=== PATIENT | male | born 1955 | race African-American/Black ===

== ENCOUNTER 2016-09-11 19:22 | Emergency (ER) | payer OTHER ==
--- NOTE | 2016-09-11 19:42 | ER Document Report ---
ED General - General Stated Complaint: SHORTNESS OF BREATH Time Seen by Provider: 09/11/16 19:31 Notes: Patient is a 61-year-old male with past medical history of hypertension and remote history of prostate cancer who presents with shortness of breath. Patient states he has had progressively worsening abdominal swelling for the past 4 months which was just evaluated by a CT scan without contrast of his abdomen and pelvis earlier today. States his doctor told him he had a large right-sided tumor but did not make any further referrals from there at this point. Patient states that he was sitting in a chair today and progressively felt worse and worse that he could not breathe. Nothing improves or worsens his symptoms. He reports that he has felt this way for at least 2-3 weeks but that it was somewhat worse today which is what prompted him to come to the emergency department. He has not had any vomiting or diarrhea. No chest pain. Does describe diffuse abdominal cramping, constant pain. Nothing improves or worsens that pain he states is unchanged at this time. - Related Data Allergies/Adverse Reactions: latex Allergy (Verified 09/11/16 19:47) Home Medications: Current Home Medications Amlodipine Besylate [Norvasc 5 mg Tablet] 5 mg PO DAILY 09/11/16 [History] Timolol [Betimol] 1 drop OU Q12 09/11/16 [History] Past Medical History - General Information source: Patient - Social History Smoking Status: Former Smoker Frequency of alcohol use: None Drug Abuse: None Lives with: Family Family History: Reviewed & Not Pertinent Review of Systems - Review of Systems Notes: Constitutional: Negative for fever. HENT: Negative for sore throat. Eyes: Negative for visual changes. Cardiovascular: Negative for chest pain. Respiratory: positive for shortness of breath. Gastrointestinal: Positive for abdominal pain Genitourinary: Negative for dysuria. Musculoskeletal: Negative for back pain. Skin: Negative for rash. Neurological: Negative for headaches, weakness or numbness. 10 point ROS negative except as marked above and in HPI. Physical Exam - Vital signs Vitals: Temp Pulse Ox 97.1 F 85 L 09/11/16 19:45 09/11/16 19:45 Interpretation: Tachycardic, Hypoxic, Tachypneic Notes: PHYSICAL EXAMINATION: GENERAL: Appears uncomfortable, in mild distress HEAD: Atraumatic, normocephalic. EYES: Pupils equal round and reactive to light, extraocular movements intact, sclera anicteric, conjunctiva are normal. ENT: nares patent, oropharynx clear without exudates. Moderately dry mucous membranes. NECK: Normal range of motion, supple without lymphadenopathy LUNGS: Breath sounds clear to auscultation bilaterally and equal. Hypoventilation. No wheezes rales or rhonchi. HEART: Regular tachycardia without murmurs ABDOMEN: Distended, firm abdomen with a large palpable right-sided mass EXTREMITIES: Normal range of motion, trace edema in the bilateral lower extremities. No cyanosis. NEUROLOGICAL: No focal neurological deficits. Moves all extremities spontaneously and on command. PSYCH: Normal mood, normal affect. SKIN: Warm, Dry, normal turgor, no rashes or lesions noted. Course - Re-evaluation Re-evalutation: 09/11/16 19:41 Patient presents with severe abdominal swelling and palpable mass originating apparently on the right side of the abdomen which appears to be so large at this point that it is compressing the patient's diaphragm preventing appropriate respiration. Patient is satting 86% on room air and does require 3 and half liters by nasal cannula to maintain saturations of 94%. Breath sounds are clear bilaterally. Patient does not have any focal abdominal pain but as mentioned earlier there is an easily identifiable large mass in the abdomen. He states he was told earlier today that he has a tumor in his abdomen by his primary care doctor. The size of this mass preventing patient from having appropriate ventilation does make this more of an emergent issue that is not going to be able to be addressed as an outpatient and he is in require transfer to a location with surgical oncology. Will obtain a CT of the abdomen pelvis and basic labs in plan for transfer. 09/11/162019 Patient remains hemodynamically stable on 3.5 L of nasal cannula, will continue to monitor closely as patient remains critically ill 2099-laboratories are positive for an moderately elevated troponin, moderately elevated lactate, slight anemia. Pending CTA of the chest and CT abdomen 2237-I received a call from the radiologist that the patient has bilateral pulmonary emboli in addition to an extremely large abdominal tumor. Awaiting full report. Patient has been given a dose of subcutaneous Lovenox. He will be transferred. 09/12/16 01:15 I continue to await [facility] returning my phone call. Pedrito stated the had a 3-4 day waiting period for a bed. Abhi likewise states 2 days minimum for a bed. 09/12/16 01:25 I have spoken with at [facility] who has accepted the patient in transfer at this time. - Vital Signs Vital signs: Temp Pulse Resp BP Pulse Ox 97.1 F 28 H 120/93 H 98 09/11/16 19:45 09/12/16 00:45 09/12/16 00:03 09/12/16 00:45 - Laboratory Result Diagrams: 09/11/16 19:58 09/11/16 19:58 Laboratory results interpreted by me: 09/11/16 09/11/16 09/11/16 19:58 19:58 19:58 WBC 10.9 H RBC 3.94 L Hgb 11.8 L Hct 36.0 L RDW 14.9 H Seg Neutrophils % 78.4 H Lymphocytes % 9.9 L Absolute Neutrophils 8.6 H Carbon Dioxide 18 L Lactic Acid 2.4 H Direct Bilirubin 0.8 H ALT 15 L Critical Care Note - Critical Care Note Total time excluding time spent on procedures (mins): 40 Comments: Critical care time spent obtaining history from patient or surrogate, discussions with consultants, development of treatment plan with patient or surrogate, evaluation of patient's response to treatment, examination of patient , ordering and performing treatments and interventions, ordering and review of laboratory studies, re-evaluation of patient's condition, ordering and review of radiographic studies and review of old charts Discharge - Discharge Clinical Impression: Bilateral pulmonary embolism, Intraabdominal mass Condition: Fair Disposition: [facility]
[2016-09-11 20:15] LABS: ABSOLUTE BASOPHILS # (AUTO) 0.1 10^3/uL (0.0-0.2); ABSOLUTE EOSINOPHILS # (AUTO) 0.3 10^3/uL (0.0-0.6); ABSOLUTE LYMPHOCYTES (AUTO) 1.1 10^3/uL (0.5-4.7); ABSOLUTE MONOCYTES (AUTO) 0.9 10^3/uL (0.1-1.4); ABSOLUTE NEUT (AUTO) 8.6 10^3/uL (1.7-8.2); BASOPHILS % (AUTO) 1.1 % (0-2); EOSINOPHILS % (AUTO) 2.5 % (0-6); HEMOGLOBIN 11.8 g/dL (13.5-17.0); HGB HCT DIFFERENCE -0.6; LYMPHOCYTES % (AUTO) 9.9 % (13-45); MEAN CORPUSCULAR HGB CONC 32.8 g/dL (32.0-36.0); MEAN CORPUSCULAR VOLUME 91 fl (80-97); MONOCYTES % (AUTO) 8.1 % (3-13); RED BLOOD COUNT 3.94 10^6/uL (4.35-5.55); RED CELL DISTRIBUTION WIDTH 14.9 % (11.5-14.0); SEGMENTED NEUTROPHILS % (AUTO) 78.4 % (42-78); WHITE BLOOD COUNT 10.9 10^3/uL (4.0-10.5)
[2016-09-11 20:33] LABS: ALANINE AMINOTRANSFERASE 15 U/L (21-72); ALBUMIN 3.7 g/dL (3.5-5.0); ALKALINE PHOSPHATASE 68 U/L (38-126); ANION GAP 14 (5-19); ASPARTATE AMINO TRANSFERASE 29 U/L (17-59); BILIRUBIN,DIRECT 0.8 mg/dL (0.0-0.4); BILIRUBIN,TOTAL 1.2 mg/dL (0.2-1.3); BLOOD UREA NITROGEN 15 mg/dL (7-20); CALCIUM 8.5 mg/dL (8.4-10.2); CARBON DIOXIDE 18 mmol/L (22-30); CHLORIDE 107 mmol/L (98-107); CREATININE RESULT 1.01 mg/dL (0.52-1.25); GLUCOSE 108 mg/dL (75-110); LIPASE 23.5 U/L (23-300); TOTAL PROTEIN 7.5 g/dL (6.3-8.2)
--- NOTE | 2016-09-11 22:05 | RADIOLOGY REPORT (SQ) ---
EXAM DESCRIPTION: CHEST SINGLE VIEW COMPLETED DATE/TIME: 09/11/2016 9:11 pm REASON FOR STUDY: sob COMPARISON: None. EXAM PARAMETERS: NUMBER OF VIEWS: One view. TECHNIQUE: Single frontal radiographic view of the chest acquired. RADIATION DOSE: NA LIMITATIONS: None. FINDINGS: LUNGS AND PLEURA: No opacities, masses or pneumothorax. No pleural effusion. MEDIASTINUM AND HILAR STRUCTURES: No masses. Contour normal. HEART AND VASCULAR STRUCTURES: Heart normal in size. Normal vasculature. BONES: No acute findings. HARDWARE: None in the chest. OTHER: No other significant finding. IMPRESSION: NO ACUTE RADIOGRAPHIC FINDING IN THE CHEST. TECHNICAL DOCUMENTATION: JOB ID: [id number]
--- NOTE | 2016-09-11 22:41 | RADIOLOGY REPORT (SQ) ---
EXAM DESCRIPTION: CTA CHEST COMPLETED DATE/TIME: 09/11/2016 9:41 pm REASON FOR STUDY: eval pe COMPARISON: None. TECHNIQUE: CT scan of the chest performed using helical scanning technique with dynamic intravenous contrast injection. Images reviewed with lung, soft tissue and bone windows. Reconstructed coronal and sagittal MPR images reviewed. Additional 3 dimensional post-processing performed to develop Maximal Intensity Projection images (SC P). All images stored on PACS. All CT scanners at this facility use dose modulation, iterative reconstruction, and/or weight based d osing when appropriate to reduce radiation dose to as low as reasonably achievable (ALARA). [facility]: Dose Right [facility]: CareDose [facility]: Dose Right [facility]: Teradose 4D [facility]: [employer] CONTRAST TYPE AND DOSE: 68 Isovue 370 RENAL FUNCTION: Creatinine 1.01 RADIATION DOSE: . LIMITATIONS: None. FINDINGS: LUNGS AND PLEURA: No masses, infiltrates, pneumothorax. No pleural effusions, calcificati ons. AORTA AND GREAT VESSELS: No aneurysm or dissection. HEART: No pericardial effusion. PULMONARY ARTERIES: There is extensive bilateral central pulmonary embolic disease. HILAR AND MEDIASTINAL STRUCTURES: No identified masses or abnormal nodes. HARDWARE: None in the chest. UPPER ABDOMEN: See results under abdominal CT scan THYROID AND OTHER SOFT TISSUES: No masses. No adenopathy. BONES: No acute or significant finding. 3D MIPS: Confirm above findings. OTHER: No other significant finding. IMPRESSION: Extensive bilateral central pulmonary embolic disease. No acute consolidations or pleur al effusions. Other findings as noted above COMMENT: Pertinent findings on the imaging study reported as a CRITICAL RESULT to REDDY vilchis t22:28 on 09/11/2016. Category of Critical Result: Pertinent findings on the imaging study reported as a CRITICAL RESULT to REDDY THOMAS MD at22:28 on . Category of Critical Result: Bilateral central pulmonary embolic disease. TECHNICAL DOCUMENTATION: JOB ID: [id number] Quality ID # [id number]: Final reports with documentation of one or more dose reduction techniques (e.g., Au tomated exposure control, adjustment of the mA and/or kV according to patient size, use of iterative reconstruction technique) 2010 [employer]- All Rights Reserved
[2016-09-11] MEDS ORDERED: ENOXAPARIN SODIUM INJ 100 MG/1 ML DISP.SYRIN SUBCUT SCH (22:45)
--- NOTE | 2016-09-11 22:47 | RADIOLOGY REPORT (SQ) ---
EXAM DESCRIPTION: CT ABD/PELVIS WITH IV ONLY COMPLETED DATE/TIME: 09/11/2016 9:41 pm REASON FOR STUDY: abdominal mass, distention COMPARISON: None. TECHNIQUE: CT scan of the abdomen and pelvis performed using helical scanning technique with dynamic intravenous contrast injection. No oral contrast. Images reviewed with lung, soft tissue, and bone windows. Reconstructed coronal and sagittal MPR images reviewed. Delayed images for evaluation of the urinary system also acquired. All images stored on PACS. All CT scanners at this facility use dose modulation, iterative reconstruction, and/or weight based d osing when appropriate to reduce radiation dose to as low as reasonably achievable (ALARA). [facility]: Dose Right [facility]: CareDose [facility]: Dose Right [facility]: Teradose 4D [facility]: NPTV CONTRAST TYPE AND DOSE: contrast/concentration: Isovue 370.00 mg/ml; Total Contrast Delivered: 67.0 ml; Total Saline Delivered: 40.0 ml RENAL FUNCTION: Creatinine 1.01 RADIATION DOSE: Up-to-date CT equipment and radiation dose reduction techniques were employed. CTDIv ol: 28.8 - 32.7 mGy. DLP: 3772 mGy-cm.. LIMITATIONS: None. FINDINGS: LOWER CHEST: See results under chest CT scan LIVER: Normal size. No masses. No dilated ducts. SPLEEN: Normal size. No focal lesions. PANCREAS: No masses. No significant calcifications. No adjacent inflammation or peripancreatic fluid collections. Pancreatic duct not dilated. GALLBLADDER: No identified stones by CT criteria. No inflammatory changes to suggest cholecystitis. ADRENAL GLANDS: No significant masses or asymmetry. RIGHT KIDNEY AND URETER: No solid masses. No significant calcifications. No hydronephrosis or hyd roureter. LEFT KIDNEY AND URETER: No solid masses. No significant calcifications. No hydronephrosis or hydr oureter. AORTA AND VESSELS: No aneurysm. No dissection. Renal arteries, SMA, celiac without stenosis. RETROPERITONEUM: No retroperitoneal adenopathy, hemorrhage or masses. BOWEL AND PERITONEAL CAVITY: A large complex predominately cystic mass is identified extending from t he upper abdomen into the lower pelvis predominately centrally and to the left of midline measuring 1 8.6 x 27.4 by 37 cm in diameters. There appear to be loculated components as well as multiple mural nodules. There is a densely calcified component in the left lower quadrant. 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 APPENDIX: Not identified PELVIS: There is a large pelvic component of the mass. ABDOMINAL WALL: No masses. No hernias. BONES: No significant or acute findings. OTHER: No other significant finding. IMPRESSION: A large complex predominately cystic mass is identified extending from the upper abdomen into the lower pelvis predominately centrally and to the left of midline as noted above. There are loculated components as well as multiple mural nodules. There is a densely calcified component in th e left lower quadrant. 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 Clinical correl ation is recommended. Other findings as noted above TECHNICAL DOCUMENTATION: JOB ID: [id number] Quality ID # 436: Final reports with documentation of one or more dose reduction techniques (e.g., Au tomated exposure control, adjustment of the mA and/or kV according to patient size, use of iterative reconstruction technique) 2010 [employer]- All Rights Reserved
[2016-09-12] MEDS ORDERED: DIAZEPAM 5 MG TABLET PO ONE (01:14)
[2016-09-12 02:14] VITALS: BP 100/82
[2016-09-12 02:39] LABS: APPEARANCE,URINE SLIGHTLY-CLOUDY; BILIRUBIN,URINE NEGATIVE (NEGATIVE); GLUCOSE, URINE NEGATIVE (NEGATIVE); KETONES,URINE 20 mg/dL (NEGATIVE); LEUKOCYTE ESTERASE,URINE NEGATIVE (NEGATIVE); NITRITE,URINE NEGATIVE (NEGATIVE); PROTEIN,URINE 30 mg/dL (NEGATIVE); URINE SPECIFIC GRAVITY 1.057
== END 2016-09-12 02:27 | disposition short-term general hospital (02) ==
LOC: ER 19:22
DX: I26.99 Other pulmonary embolism without acute cor pulmonale (principal); R19.00 Intra-abdominal and pelvic swelling, mass and lump, unspecified site; R06.02 Shortness of breath; I10 Essential (primary) hypertension; Z85.46 Personal history of malignant neoplasm of prostate; Z79.899 Other long term (current) drug therapy; Z87.891 Personal history of nicotine dependence
CPT/HCPCS: 36415; 71010; 71275; 74177; 80053; 81001; 83605; 83690; 84484; 85025; 99291

== ENCOUNTER 2017-01-17 08:06 | Emergency (ER) | payer OTHER ==
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
[2017-01-17 11:44] VITALS: BP 117/67
== END 2017-01-17 11:44 | disposition home or self-care (01) ==
LOC: ER 08:06
DX: T81.89XA Other complications of procedures, not elsewhere classified, initial encounter (principal); Z87.891 Personal history of nicotine dependence
CPT/HCPCS: 99282

== ENCOUNTER 2017-10-27 11:02 | Emergency (ER) | payer OTHER ==
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
[2017-10-27 11:35] LABS: ABSOLUTE EOSINOPHILS # (AUTO) 0.2 10^3/uL (0.0-0.6); ABSOLUTE LYMPHOCYTES (AUTO) 0.5 10^3/uL (0.5-4.7); ABSOLUTE MONOCYTES (AUTO) 0.8 10^3/uL (0.1-1.4); ABSOLUTE NEUT (AUTO) 6.1 10^3/uL (1.7-8.2); BASOPHILS % (AUTO) 0.6 % (0-2); EOSINOPHILS % (AUTO) 2.7 % (0-6); HEMATOCRIT 33.6 % (37.9-51.0); HEMOGLOBIN 11.4 g/dL (13.5-17.0); LYMPHOCYTES % (AUTO) 6.7 % (13-45); MEAN CORPUSCULAR HEMOGLOBIN 31.8 pg (27.0-33.4); MEAN CORPUSCULAR VOLUME 94 fl (80-97); MONOCYTES % (AUTO) 10.2 % (3-13); PLATELET COUNT 264 10^3/uL (150-450); RED CELL DISTRIBUTION WIDTH 18.9 % (11.5-14.0); SEGMENTED NEUTROPHILS % (AUTO) 79.8 % (42-78); TOTAL CELLS COUNTED % (AUTO) 100 %; WHITE BLOOD COUNT 7.6 10^3/uL (4.0-10.5)
[2017-10-27 12:04] LABS: ALANINE AMINOTRANSFERASE 76 U/L (21-72); ALBUMIN 3.2 g/dL (3.5-5.0); ALKALINE PHOSPHATASE 434 U/L (38-126); ANION GAP 10 (5-19); ASPARTATE AMINO TRANSFERASE 140 U/L (17-59); BILIRUBIN,DIRECT 8.5 mg/dL (0.0-0.4); BILIRUBIN,TOTAL 9.7 mg/dL (0.2-1.3); BLOOD UREA NITROGEN 22 mg/dL (7-20); CALCIUM 8.8 mg/dL (8.4-10.2); CARBON DIOXIDE 21 mmol/L (22-30); CHLORIDE 103 mmol/L (98-107); CREATINE KINASE 29 U/L (55-170); GLUCOSE 86 mg/dL (75-110); POTASSIUM 5.6 mmol/L (3.6-5.0); SODIUM 134.4 mmol/L (137-145); TOTAL PROTEIN 7.8 g/dL (6.3-8.2)
[2017-10-27 12:16] LABS: NT PRO BNP 365 pg/mL (5-900)
[2017-10-27 12:16] LABS: APPEARANCE,URINE SLIGHTLY-CLOUDY; BILIRUBIN,URINE MODERATE (NEGATIVE); COLOR,URINE AMBER; GLUCOSE, URINE NEGATIVE (NEGATIVE); KETONES,URINE NEGATIVE (NEGATIVE); LEUKOCYTE ESTERASE,URINE NEGATIVE (NEGATIVE); NITRITE,URINE NEGATIVE (NEGATIVE); PROTEIN,URINE 100 mg/dL (NEGATIVE); URINE SPECIFIC GRAVITY 1.023
--- NOTE | 2017-10-27 12:24 | RADIOLOGY REPORT (SQ) ---
EXAM DESCRIPTION: CHEST SINGLE VIEW COMPLETED DATE/TIME: 10/27/2017 11:48 am REASON FOR STUDY: SOB COMPARISON: None. EXAM PARAMETERS: NUMBER OF VIEWS: One view. TECHNIQUE: Single frontal radiographic view of the chest acquired. RADIATION DOSE: NA LIMITATIONS: None. FINDINGS: LUNGS AND PLEURA: Pulmonary nodules in the left lung near the hilum, measuring 2 and 3 cm. No focal infiltrates. No pleural effusion. No pneumothorax. MEDIASTINUM AND HILAR STRUCTURES: No masses. Contour normal. HEART AND VASCULAR STRUCTURES: Heart normal in size. Normal vasculature. BONES: No acute findings. HARDWARE: None in the chest. OTHER: No other significant finding. IMPRESSION: PULMONARY NODULES IN THE LEFT LUNG MOST LIKELY DUE TO METASTASES. OTHERWISE NO ACUTE FI NDINGS. TECHNICAL DOCUMENTATION: JOB ID: [id number] [employer]- All Rights Reserved Reading location - IP/workstation name: [email or web address]
[2017-10-27 12:32] LABS: TROPONIN I < 0.012 ng/mL
[2017-10-27 14:06] VITALS: BP 111/84
--- NOTE | 2017-10-27 14:39 | RADIOLOGY REPORT (SQ) ---
EXAM DESCRIPTION: CT LTD RENAL STONE PROTOCOL ON COMPLETED DATE/TIME: 10/27/2017 2:16 pm REASON FOR STUDY: Hematuria COMPARISON: 09/11/2016. TECHNIQUE: CT scan of the abdomen and pelvis performed without intravenous or oral contrast. Images reviewed with lung, soft tissue, and bone windows. Reconstructed coronal and sagittal MPR images revi ewed. All images stored on PACS. All CT scanners at this facility use dose modulation, iterative reconstruction, and/or weight based d osing when appropriate to reduce radiation dose to as low as reasonably achievable (ALARA). [facility]: Dose Right [facility]: CareDose [facility]: Dose Right [facility]: Teradose 4D [facility]: Smart [employer] RADIATION DOSE: CT Rad equipment meets quality standard of care and radiation dose reduction techniq ues were employed. CTDIvol: 8.7 mGy. DLP: 515 mGy-cm.mGy. LIMITATIONS: None. FINDINGS: LOWER CHEST: 1.6 cm mass in the medial left lower lobe. NON-CONTRASTED LIVER, SPLEEN, ADRENALS: Evaluation limited by lack of IV contrast. Marked hepatomega ly. Multiple confluent hepatic masses. Largest area of involvement measures approximately 16 cm. PANCREAS: No masses. No peripancreatic inflammatory changes. GALLBLADDER: No identified stones by CT criteria. No inflammatory changes to suggest cholecystitis. RIGHT KIDNEY AND URETER: No suspicious masses. Assessment limited by lack of IV contrast. No signif icant calcifications. No hydronephrosis or hydroureter. LEFT KIDNEY AND URETER: Surgically absent. AORTA AND RETROPERITONEUM: No aneurysm. No retroperitoneal masses or adenopathy. BOWEL AND PERITONEAL CAVITY: No obvious masses or inflammatory changes. Small amount of free fluid. APPENDIX: Normal. PELVIS, BLADDER, AND ABDOMINAL WALL:No abnormal masses. No free fluid. Bladder normal. BONES: Mild wedge deformity of L1, age indeterminate. No other significant findings. OTHER: No other significant finding. IMPRESSION: 1. MARKED HEPATIC ENLARGEMENT WITH MULTIPLE LARGE CONFLUENT HEPATIC MASSES CONSISTENT WITH EXTENSIVE METASTASES. 2. NODULE IN THE MEDIAL LEFT LOWER LOBE CONSISTENT WITH PULMONARY METASTASIS. 3. SMALL AMOUNT OF ASCITES. 4. MILD WEDGE DEFORMITY OF THE L1 VERTEBRAL BODY, AGE INDETERMINATE. COMMENT: Quality ID # [id number]: Final reports with documentation of one or more dose reduction techniques (e.g., Automated exposure control, adjustment of the mA and/or kV according to patient size, use of iterative reconstruction technique) TECHNICAL DOCUMENTATION: JOB ID: [id number] [employer]- All Rights Reserved Reading location - IP/workstation name: [email or web address]
== END 2017-10-27 16:09 | disposition home or self-care (01) ==
LOC: ER 11:02
DX: C78.7 Secondary malignant neoplasm of liver and intrahepatic bile duct (principal); C78.02 Secondary malignant neoplasm of left lung; R18.8 Other ascites; R06.02 Shortness of breath; R31.0 Gross hematuria; I10 Essential (primary) hypertension; Z91.040 Latex allergy status; Z87.891 Personal history of nicotine dependence; Z86.711 Personal history of pulmonary embolism; Z90.5 Acquired absence of kidney
CPT/HCPCS: 36415; 71045; 76380; 80053; 81001; 82550; 83605; 83880; 84484; 85025; 99284

== ENCOUNTER → 2017-11-07 | Outpatient (CLI) | payer OTHER ==
--- NOTE | 2017-11-07 12:58 | WOMENS IMAGING REPORT ---
EXAM DESCRIPTION: BONE DENSITY HIP/SPINE COMPLETED DATE/TIME: 11/07/2017 9:59 am REASON FOR STUDY: BONE DENSITY TEST/ M81.0 M81.0 AGE-RELATED OSTEOPOROSIS W/O CURRENT PATHOLOGICAL FRAC COMPARISON: None. TECHNIQUE: Dual-Energy X-ray Absorptiometry (DEXA) of the AP Spine and Hip. LIMITATIONS: None. FINDINGS: LUMBAR SPINE: The bone mineral density (BMD) measured from L1-L4 in the AP projection correlates with a T-score of -0.1, which is normal as defined by the World Health Organization. HIP: The bone mineral density (BMD) measured in the left femoral neck at the hip correlates with a T-score of -0.4, which is normal as defined by the World Health Organization. IMPRESSION: 1. LUMBAR SPINE: Normal 2. HIP: Normal COMMENT: The World Health Organization defines low BMD as follows: T-score: Normal: Greater than -1.0 Osteopenia: Between -1.0 and -2.5 Osteoporosis: Less than -2.5 without fractures Established osteoporosis: Less than -2.5 with fractures In general, you may wish to consider: Diagnosis Treatment Follow-up DEXA Normal BMD Prevention 2-3 years Osteopenia Prevention/Therapy 1-2 years Osteoporosis Therapy Yearly TECHNICAL DOCUMENTATION: JOB ID: [id number] [employer]- All Rights Reserved Reading location - IP/workstation name: [email or web address]
== END ==
LOC: WI 09:17
PROVIDERS: ATTEND Internal Medicine
DX: M81.0 Age-related osteoporosis without current pathological fracture (principal)
CPT/HCPCS: 77080

== ENCOUNTER → 2017-11-11 | Outpatient (CLI) | payer OTHER ==
[~2017-11-11] MED LIST: ENOXAPARIN SODIUM INJ 30 MG/0.3 ML DISP.SYRIN SUBCUT SCH; NORMAL SALINE 1000 ML 1,000 ML IV PRN
--- NOTE | 2017-11-12 09:14 | RADIOLOGY REPORT (SQ) ---
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 TECHNIQUE: Blood glucose level was verified. Above dose of FDG was injected intravenously. 2-D seg mented attenuation correction images were obtained from the base of the skull to the midthighs. Nonc ontrast CT images were obtained for attenuation correction and fusion with emission images. CT image s were performed without oral or intravenous contrast and are not sensitive for parenchymal lesions. A series of overlapping emission PET images were obtained. Images reviewed and manipulated at [facility] work station by the radiologist. Images stored on PACS. LIMITATIONS: None. FINDINGS: HEAD AND NECK: No areas of abnormal metabolic activity in the soft tissues of the head and neck. CHEST: There are multiple metabolically active lung nodules from metastatic disease. Index lesions a s follows: Solid Left upper lobe nodule, 1.7 x 1.6 cm axial image 83, SUV of 8. Cystic left upper lobe nodule, 2.5 x 2.1 cm axial image 91, SUV 2.2 Solid left lower lobe nodule, 2 x 1.5 cm axial image 116, SUV 4.5 A subcentimeter left hilar lymph node is present on axial image 97 with SUV 3.4 ABDOMEN AND PELVIS: Diffuse hepatomegaly. Liver is near completely replaced with cystic masses with peripheral rim of increased activity. Metabolic activity ranges up to SUV of 8 PROXIMAL LOWER EXTREMITIES: No areas of abnormal metabolic activity in the soft tissues of the lower extremities. BONES: No abnormal metabolic activity in the visualized skeleton. Specifically, no lumbar spine lesi ons are present ADDITIONAL CT FINDINGS: Post left nephrectomy adrenalectomy partial colectomy. OTHER: Blood pool background activity SUV 1.5. Unable to measure liver background activity. 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
== END ==
LOC: RAD 11-04 17:05
PROVIDERS: ATTEND Internal Medicine
DX: C48.0 Malignant neoplasm of retroperitoneum (principal); C78.7 Secondary malignant neoplasm of liver and intrahepatic bile duct; C78.02 Secondary malignant neoplasm of left lung
CPT/HCPCS: 78815; A9552

== ENCOUNTER 2017-11-14 12:47 | Inpatient (IN) | payer OTHER ==
[2017-11-14] MEDS: NORMAL SALINE 1000 ML 1,000 ML IV PRN (14:16)
[2017-11-14] MEDS ORDERED: MORPHINE SULFATE 10 MG/ML INJ IV PRN (14:56)
[2017-11-14] MEDS ORDERED: ENOXAPARIN SODIUM INJ 30 MG/0.3 ML DISP.SYRIN SUBCUT SCH (15:30)
--- NOTE | 2017-11-14 15:50 | PDOC H&P ---
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 Durand's clinic due to dehydration. Patient apparently went to see Dr. Durand earlier today. He has been having chronic generalized abdominal pain which has worsened in the past 4 weeks. This is also associated with early satiety. He has been having poor oral intake for the past few weeks and was noted to be dehydrated when he was assessed at the oncology clinic. Patient is a direct admit from Dr. Durand's clinic. Discussed case with Dr. Durand over the phone. Patient has been found to have mets to the liver and lungs. Patient and family apparently are not amenable to hospice care. Upon encounter, patient does not appear to be in respiratory distress but is in distress from his abdominal pain. Patient and family expressed they want to be transferred to [facility] to seek a second opinion about treatment options for his cancer. Past Medical History Cardiac Medical History: Reports: Hypertension, Pulmonary Embolism Past Surgical History Past Surgical History: Reports: Other - 20 pound abdominal sarcoma removed on . Social History Smoking Status: Former Smoker Number of Years Smokin Last Time Smoked: June 2017 Family History Family History: Reviewed & Not Pertinent Parental Family History Reviewed: Yes - no premature CAD Children Family History Reviewed: No Sibling(s) Family History Reviewed.: No Medication/Allergy Home Medications: Polyethylene Glycol 3350 [Miralax Powder 17 gm/Packet] 17 gm PO BID 11/14/17 Rivaroxaban [Xarelto] 20 mg PO DAILY 11/14/17 Sulfamethoxazole/Trimethoprim [Sulfamethoxazole-Tmp Ds Tablet] 1 tab PO BID 11/22 Timolol Maleate [Timoptic 0.5% Oph Soln 5 ml] 1 drop OU BID 11/14/17 Allergies/Adverse Reactions: latex Allergy (Verified 01/17/17 08:08) Review of Systems All systems: reviewed and no additional remarkable complaints except as stated - as mentioned in HPI Physical Exam Vital Signs: Intake & Output 11/13/17 11/14/17 11/15/17 06:59 06:59 06:59 Weight 203 lb 0.732 oz General appearance: PRESENT: mild distress, thin Head exam: PRESENT: atraumatic, normocephalic Eye exam: PRESENT: EOMI, PERRLA, scleral icterus Ear exam: PRESENT: normal external ear exam Mouth exam: PRESENT: moist, tongue midline Neck exam: ABSENT: carotid bruit, JVD, lymphadenopathy, thyromegaly Respiratory exam: PRESENT: clear to auscultation michelle, rhonchi. ABSENT: rales, wheezes Cardiovascular exam: PRESENT: RRR. ABSENT: diastolic murmur, rubs, systolic murmur Pulses: PRESENT: normal dorsalis pedis pul GI/Abdominal exam: PRESENT: distended, mass, organolmegaly - distended abdomen,+ hepatomegaly, +direct LUQ and RUQ tenderness, tenderness Rectal exam: PRESENT: deferred Neurological exam: PRESENT: alert, awake, oriented to person, oriented to place , oriented to time, oriented to situation, CN II-XII grossly intact. ABSENT: motor sensory deficit Assessment & Plan - Diagnosis (1) Acute kidney injury Is this a current diagnosis for this admission?: Yes Plan: BUN and Crea are elevated. Likely pre renal from dehydration from poor oral intake. Will give a fluid bolus the continue IV fluids at 120 cc/hr. Recheck BMP tomorrow. (2) History of pulmonary embolism Is this a current diagnosis for this admission?: Yes Plan: Patient is on Xarelto at home. He has TONIA. Will start patient on heparin drip. (3) Leiomyosarcoma Is this a current diagnosis for this admission?: Yes Plan: Patient was first diagnosed with a left quadrant abdominal mass in September 2015. He eventually underwent resection of the mass with left sided nephrectomy and partial colectomy with pre surgery radiation at [facility]. Patient follows up with Dr. Durand. Patient was recently noted to have liver and lung metastases. Patient and family requested to be transferred to [facility] for a second opinion regarding treatment options for cancer care. Explained it is unlikely he will be eligible for interfacility transfer for cancer care. Discussed in length with patient and family. I did call [facility] and spoke with equipment validation engineer oncologist, Dr. Lloyd and discussed case in length. Patient will have to be treated for his acute issues first (TONIA, dehydration). When he is more stable , he will be evaluated at [facility] Oncology clinic. Dr. Lloyd will also forward case to Sarcoma specialists in [facility] if there are viable options or clinical trials for patient. (4) Hyperbilirubinemia Is this a current diagnosis for this admission?: Yes Plan: Patient has had chronic hyperbilirubinemia deemed from hepatic metastases. (5) Transaminitis Is this a current diagnosis for this admission?: Yes Plan: Patient has chronic elevated liver enzymes deemed from hepatic metastases. (6) Hyperkalemia Is this a current diagnosis for this admission?: Yes Plan: Potassium is 5.2. This is likely related to TONIA. No EKG changes. Continue fluids for TONIA. Will repeat Potassium in 6 hrs. (7) Full code status Is this a current diagnosis for this admission?: Yes Plan: Discussed code status and plan of care with patient and family. Patient expressed he wants full resuscitation including CPR and intubation if he arrests. Rediscussed palliative care as well as hospice care. Patient is amenable to consulting palliative service but is not amenable to hospice care at this time. - Time Time Spent: Greater than 70 Minutes
[2017-11-14 15:52] LABS: HEMATOCRIT 33.6 % (37.9-51.0); HEMOGLOBIN 11.7 g/dL (13.5-17.0); MEAN CORPUSCULAR HEMOGLOBIN 33.5 pg (27.0-33.4); MEAN CORPUSCULAR HGB CONC 34.9 g/dL (32.0-36.0); MEAN CORPUSCULAR VOLUME 96 fl (80-97); PLATELET COUNT 170 10^3/uL (150-450); RED BLOOD COUNT 3.49 10^6/uL (4.35-5.55); RED CELL DISTRIBUTION WIDTH 23.8 % (11.5-14.0); WHITE BLOOD COUNT 6.9 10^3/uL (4.0-10.5)
--- NOTE | 2017-11-14 15:56 | RADIOLOGY REPORT (SQ) ---
EXAM DESCRIPTION: CHEST SINGLE VIEW COMPLETED DATE/TIME: 11/14/2017 3:43 pm REASON FOR STUDY: worsneing SOB, poss lung mets COMPARISON: Seen with his PET-CT 11/11/2017 AP chest 10/27/2017 EXAM PARAMETERS: NUMBER OF VIEWS: One view. TECHNIQUE: Single frontal radiographic view of the chest acquired. RADIATION DOSE: NA LIMITATIONS: None. FINDINGS: LUNGS AND PLEURA: No acute infiltrates. No pleural effusion or pneumothorax. Stable 2 cm and 2.5 cm nodules in the left upper lobe, unchanged from PET-CT. MEDIASTINUM AND HILAR STRUCTURES: No masses. Contour normal. HEART AND VASCULAR STRUCTURES: Heart normal in size. Normal vasculature. BONES: No acute findings. HARDWARE: None in the chest. OTHER: No other significant finding. IMPRESSION: No acute findings. Stable left upper lobe pulmonary nodules TECHNICAL DOCUMENTATION: JOB ID: [id number] [employer]- All Rights Reserved Reading location - IP/workstation name: [email or web address]
[2017-11-14 16:04] LABS: ALANINE AMINOTRANSFERASE 81 U/L (21-72); ALBUMIN 2.9 g/dL (3.5-5.0); ALKALINE PHOSPHATASE 409 U/L (38-126); ANION GAP 14 (5-19); ASPARTATE AMINO TRANSFERASE 179 U/L (17-59); BILIRUBIN,DIRECT 18.1 mg/dL (0.0-0.4); BILIRUBIN,TOTAL 19.6 mg/dL (0.2-1.3); BLOOD UREA NITROGEN 57 mg/dL (7-20); CALCIUM 8.8 mg/dL (8.4-10.2); CARBON DIOXIDE 18 mmol/L (22-30); CHLORIDE 104 mmol/L (98-107); GLUCOSE 111 mg/dL (75-110); POTASSIUM 5.2 mmol/L (3.6-5.0); SODIUM 136.3 mmol/L (137-145); TOTAL PROTEIN 7.5 g/dL (6.3-8.2)
[2017-11-14 16:48] LABS: ABSOLUTE LYMPHOCYTES# (MANUAL) 0.1 10^3/uL (0.5-4.7); ABSOLUTE MONOCYTES # (MANUAL) 0.4 10^3/uL (0.1-1.4); ABSOLUTE NEUTROPHILS# (MANUAL) 6.1 10^3/uL (1.7-8.2); BASOPHILS % (MANUAL) 0 % (0-2); EOSINOPHILS % (MANUAL) 4 % (0-6); LYMPHOCYTES % (MANUAL) 2 % (13-45); MONOCYTES % (MANUAL) 6 % (3-13); SEGMENTED NEUTROPHILS % (MAN) 88 % (42-78); TOTAL CELLS COUNTED 100
[2017-11-14 16:50] LABS: ANISOCYTOSIS 3+; PLATELET COMMENT ADEQUATE; PLATELET LARGE PRESENT; TOXIC VACUOLATION PRESENT
[2017-11-14 16:51] LABS: POIKILOCYTOSIS 2+; POLYCHROMASIA SLIGHT; TARGET CELLS 2+; TEAR DROP CELLS SLIGHT
[2017-11-14] MEDS ORDERED: NORMAL SALINE 1000 ML 1,000 ML IV ONE (18:11)
--- NOTE | 2017-11-14 18:18 | EKG REPORT ---
SEVERITY:- ABNORMAL ECG - SINUS RHYTHM BORDERLINE LEFT AXIS DEVIATION NONSPECIFIC T ABNORMALITIES, DIFFUSE LEADS : Confirmed by: Angelic Dias MD 14-Nov-2017 18:17:50
[2017-11-14] MEDS: HYDROMORPHONE HCL INJ/PF 2 MG/ML AMPULE IV PRN (18:31)
[2017-11-14] MEDS ORDERED: HEPARIN SODIUM,PORCINE/D5W 25,000 UNIT/250 ML RTUINJ IV PRN (18:38)
[2017-11-14 19:24] LABS: INTERNATIONAL RATION (INR) 4.86; PROTHROMBIN TIME 47.6 SEC (11.4-15.4)
[2017-11-14 19:25] LABS: HEMATOCRIT 33.8 % (37.9-51.0); HEMOGLOBIN 11.6 g/dL (13.5-17.0); MEAN CORPUSCULAR HEMOGLOBIN 33.6 pg (27.0-33.4); MEAN CORPUSCULAR HGB CONC 34.3 g/dL (32.0-36.0); MEAN CORPUSCULAR VOLUME 98 fl (80-97); PARTIAL THROMBOPLASTIN TIME 58.9 SEC (23.5-35.8); PLATELET COUNT 167 10^3/uL (150-450); RED BLOOD COUNT 3.45 10^6/uL (4.35-5.55); RED CELL DISTRIBUTION WIDTH 23.9 % (11.5-14.0); WHITE BLOOD COUNT 7.3 10^3/uL (4.0-10.5)
[2017-11-14 19:50] LABS: ABSOLUTE LYMPHOCYTES# (MANUAL) 0.7 10^3/uL (0.5-4.7); ABSOLUTE MONOCYTES # (MANUAL) 0.4 10^3/uL (0.1-1.4); ABSOLUTE NEUTROPHILS# (MANUAL) 6.2 10^3/uL (1.7-8.2); BASOPHILS % (MANUAL) 0 % (0-2); EOSINOPHILS % (MANUAL) 1 % (0-6); LYMPHOCYTES % (MANUAL) 9 % (13-45); MONOCYTES % (MANUAL) 5 % (3-13); SEGMENTED NEUTROPHILS % (MAN) 85 % (42-78); TOTAL CELLS COUNTED 100
[2017-11-14 19:56] LABS: OVALOCYTES SLIGHT; TARGET CELLS 2+; TEAR DROP CELLS SLIGHT
[2017-11-14 19:57] LABS: ANISOCYTOSIS 3+; PLATELET COMMENT ADEQUATE; PLATELET LARGE PRESENT; POIKILOCYTOSIS 2+; POLYCHROMASIA SLIGHT; TOXIC VACUOLATION PRESENT
[2017-11-14] MEDS: OXYCODONE HCL SR 10 MG TABLET PO SCH (21:13)
[2017-11-14] MEDS ORDERED: HEPARIN SOD (PORCINE) 1,000 UNIT/ML 10 ML VIAL IV PRN (21:38)
[2017-11-14 23:11] LABS: ANION GAP 11 (5-19); BLOOD UREA NITROGEN 54 mg/dL (7-20); CALCIUM 8.4 mg/dL (8.4-10.2); CARBON DIOXIDE 18 mmol/L (22-30); CHLORIDE 107 mmol/L (98-107); GLUCOSE 116 mg/dL (75-110); POTASSIUM 4.9 mmol/L (3.6-5.0); SODIUM 135.9 mmol/L (137-145)
[2017-11-15] MEDS: NORMAL SALINE 1000 ML 1,000 ML IV PRN ×3 (01:11→20:25)
[2017-11-15 02:57] LABS: HEMATOCRIT 31.9 % (37.9-51.0); HEMOGLOBIN 10.8 g/dL (13.5-17.0); MEAN CORPUSCULAR HEMOGLOBIN 33.1 pg (27.0-33.4); MEAN CORPUSCULAR HGB CONC 33.9 g/dL (32.0-36.0); MEAN CORPUSCULAR VOLUME 98 fl (80-97); PLATELET COUNT 172 10^3/uL (150-450); RED BLOOD COUNT 3.26 10^6/uL (4.35-5.55); RED CELL DISTRIBUTION WIDTH 24.2 % (11.5-14.0); WHITE BLOOD COUNT 6.7 10^3/uL (4.0-10.5)
[2017-11-15 03:11] LABS: ALANINE AMINOTRANSFERASE 81 U/L (21-72); ALBUMIN 2.9 g/dL (3.5-5.0); ALKALINE PHOSPHATASE 372 U/L (38-126); ANION GAP 10 (5-19); ASPARTATE AMINO TRANSFERASE 158 U/L (17-59); BILIRUBIN,DIRECT 17.6 mg/dL (0.0-0.4); BILIRUBIN,TOTAL 18.9 mg/dL (0.2-1.3); BLOOD UREA NITROGEN 54 mg/dL (7-20); CALCIUM 8.5 mg/dL (8.4-10.2); CARBON DIOXIDE 19 mmol/L (22-30); CHLORIDE 108 mmol/L (98-107); GLUCOSE 109 mg/dL (75-110); SODIUM 136.5 mmol/L (137-145); TOTAL PROTEIN 7.6 g/dL (6.3-8.2)
[2017-11-15 03:15] LABS: ABSOLUTE LYMPHOCYTES# (MANUAL) 0.9 10^3/uL (0.5-4.7); ABSOLUTE MONOCYTES # (MANUAL) 0.5 10^3/uL (0.1-1.4); ABSOLUTE NEUTROPHILS# (MANUAL) 5.2 10^3/uL (1.7-8.2); BASOPHILS % (MANUAL) 0 % (0-2); EOSINOPHILS % (MANUAL) 2 % (0-6); LYMPHOCYTES % (MANUAL) 12 % (13-45); MONOCYTES % (MANUAL) 8 % (3-13); SEGMENTED NEUTROPHILS % (MAN) 77 % (42-78); TOTAL CELLS COUNTED 100
[2017-11-15 03:17] LABS: ANISOCYTOSIS 3+; PLATELET COMMENT ADEQUATE; POIKILOCYTOSIS 2+; TARGET CELLS 2+
[2017-11-15 03:18] LABS: TOXIC VACUOLATION PRESENT
[2017-11-15 03:19] LABS: OVALOCYTES SLIGHT; POLYCHROMASIA SLIGHT; TEAR DROP CELLS SLIGHT
[2017-11-15 05:48] LABS: APPEARANCE,URINE SLIGHTLY-CLOUDY; BILIRUBIN,URINE MODERATE (NEGATIVE); COLOR,URINE AMBER; GLUCOSE, URINE NEGATIVE (NEGATIVE); KETONES,URINE NEGATIVE (NEGATIVE); LEUKOCYTE ESTERASE,URINE NEGATIVE (NEGATIVE); NITRITE,URINE NEGATIVE (NEGATIVE); PROTEIN,URINE NEGATIVE (NEGATIVE); URINE SPECIFIC GRAVITY 1.019
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
[2017-11-15] MEDS: OXYCODONE HCL SR 10 MG TABLET PO SCH ×2 (10:03→21:32)
--- NOTE | 2017-11-15 11:09 | RADIOLOGY REPORT (SQ) ---
EXAM DESCRIPTION: CT ABD/PELVIS NO ORAL OR IV COMPLETED DATE/TIME: 11/15/2017 10:42 am REASON FOR STUDY: abdominal distention,known liver mets/hepatomegaly COMPARISON: CT abdomen pelvis 09/11/2016, 10/27/2017 PET-CT 11/11/2017 TECHNIQUE: CT scan of the abdomen and pelvis performed without intravenous or oral contrast. Images reviewed with lung, soft tissue, and bone windows. Reconstructed coronal and sagittal MPR images revi ewed. All images stored on PACS. All CT scanners at this facility use dose modulation, iterative reconstruction, and/or weight based d osing when appropriate to reduce radiation dose to as low as reasonably achievable (ALARA). [facility]: Dose Right [facility]: CareDose [facility]: Dose Right [facility]: Teradose 4D [facility]: [employer] RADIATION DOSE: CT Rad equipment meets quality standard of care and radiation dose reduction techniq ues were employed. CTDIvol: 7.2 mGy. DLP: 468 mGy-cm.mGy. LIMITATIONS: None. FINDINGS: LOWER CHEST: Unchanged metastatic nodules to the lung bases NON-CONTRASTED LIVER, SPLEEN, ADRENALS: The liver is near completely replaced with large cystic metas tatic lesions from patient's known sarcoma. These are unchanged from prior CT exams. Spleen, adrena l glands are unremarkable. Post splenectomy. PANCREAS: No masses. No peripancreatic inflammatory changes. GALLBLADDER: Contracted, not well seen RIGHT KIDNEY AND URETER: No suspicious masses. Assessment limited by lack of IV contrast. No signif icant calcifications. No hydronephrosis or hydroureter. LEFT KIDNEY AND URETER: Post left nephro ureterectomy AORTA AND RETROPERITONEUM: No aneurysm. No retroperitoneal masses or adenopathy. BOWEL AND PERITONEAL CAVITY: No obvious masses or inflammatory changes. There is a small to moderate amount of ascites in the abdomen and pelvis, similar compared to PET-CT 03/14/2017. Partial left nicola ctomy with anastomotic german. APPENDIX: Normal. PELVIS, BLADDER, AND ABDOMINAL WALL:No abnormal masses. Free pelvic fluid similar compared to PET-CT 03/14/2017. . Bladder normal. BONES: No significant findings. OTHER: No other significant finding. IMPRESSION: Lung base and liver metastases. Small to moderate amount of ascites in the peritoneal s pace, similar compared to 11/11/2017. Post splenectomy, left nephrectomy, and resection of a large retroperitoneal sarcoma. COMMENT: Quality ID # [id number]: Final reports with documentation of one or more dose reduction techniques (e.g., Automated exposure control, adjustment of the mA and/or kV according to patient size, use of iterative reconstruction technique) TECHNICAL DOCUMENTATION: JOB ID: [id number] [employer]- All Rights Reserved Reading location - IP/workstation name: [email or web address]
[2017-11-15] MEDS ORDERED: NORMAL SALINE 1000 ML 1,000 ML IV ONE (12:00)
[2017-11-15] MEDS: HYDROMORPHONE HCL INJ/PF 2 MG/ML AMPULE IV PRN (12:17)
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
[2017-11-15] MEDS: LACTULOSE SYRUP 20 GM/30 ML UDCUP PO SCH (17:31)
[2017-11-15] MEDS: HEPARIN SOD (PORCINE) 5,000 UNIT/ML 1 ML SYRINGE SUBCUT SCH (21:32)
[2017-11-16 05:25] LABS: HEMATOCRIT 32.6 % (37.9-51.0); HEMOGLOBIN 11.2 g/dL (13.5-17.0); MEAN CORPUSCULAR HEMOGLOBIN 33.5 pg (27.0-33.4); MEAN CORPUSCULAR HGB CONC 34.2 g/dL (32.0-36.0); MEAN CORPUSCULAR VOLUME 98 fl (80-97); PLATELET COUNT 162 10^3/uL (150-450); RED BLOOD COUNT 3.34 10^6/uL (4.35-5.55); RED CELL DISTRIBUTION WIDTH 23.7 % (11.5-14.0); WHITE BLOOD COUNT 10.2 10^3/uL (4.0-10.5)
[2017-11-16 05:41] LABS: ALANINE AMINOTRANSFERASE 87 U/L (21-72); ALBUMIN 2.6 g/dL (3.5-5.0); ALKALINE PHOSPHATASE 368 U/L (38-126); ANION GAP 12 (5-19); ASPARTATE AMINO TRANSFERASE 143 U/L (17-59); BILIRUBIN,DIRECT 18.7 mg/dL (0.0-0.4); BILIRUBIN,TOTAL 20.1 mg/dL (0.2-1.3); BLOOD UREA NITROGEN 50 mg/dL (7-20); CALCIUM 8.3 mg/dL (8.4-10.2); CARBON DIOXIDE 12 mmol/L (22-30); CHLORIDE 112 mmol/L (98-107); GLUCOSE 80 mg/dL (75-110); POTASSIUM 5.4 mmol/L (3.6-5.0); PROTHROMBIN TIME 22.8 SEC (11.4-15.4); SODIUM 135.9 mmol/L (137-145)
[2017-11-16 06:03] LABS: ABSOLUTE LYMPHOCYTES# (MANUAL) 0.1 10^3/uL (0.5-4.7); BAND NEUTROPHILS % (MANUAL) 1 % (3-5); BASOPHILS % (MANUAL) 0 % (0-2); EOSINOPHILS % (MANUAL) 1 % (0-6); LYMPHOCYTES % (MANUAL) 1 % (13-45); MONOCYTES % (MANUAL) 10 % (3-13); NUCLEATED RED BLOOD CELLS 1 /100 WBC (0); SEGMENTED NEUTROPHILS % (MAN) 87 % (42-78); TOTAL CELLS COUNTED 100
[2017-11-16 06:04] LABS: TOXIC GRANULATION SLIGHT; TOXIC VACUOLATION PRESENT
[2017-11-16 06:05] LABS: ANISOCYTOSIS 3+; BURR CELLS 2+; OVALOCYTES 1+; PLATELET CLUMPS PRESENT; PLATELET COMMENT ADEQUATE; PLATELET LARGE PRESENT; POIKILOCYTOSIS 2+; POLYCHROMASIA SLIGHT; SCHISTOCYTES SLIGHT; TARGET CELLS 2+
[2017-11-16] MEDS: NORMAL SALINE 1000 ML 1,000 ML IV PRN ×2 (07:21→15:25)
[2017-11-16] MEDS: OXYCODONE HCL SR 10 MG TABLET PO SCH ×2 (09:40→21:06)
[2017-11-16] MEDS: LACTULOSE SYRUP 20 GM/30 ML UDCUP PO SCH ×3 (09:40→21:05)
[2017-11-16] MEDS: HYDROMORPHONE HCL INJ/PF 2 MG/ML AMPULE IV PRN (09:41)
[2017-11-16] MEDS: HEPARIN SOD (PORCINE) 5,000 UNIT/ML 1 ML SYRINGE SUBCUT SCH ×2 (09:42→21:04)
[2017-11-16] MEDS ORDERED: CALCIUM GLUCONATE 1000 MG/10 ML INJ IV ONE (10:30)
[2017-11-16] MEDS ORDERED: DEXTROSE 50%-WATER 25 GM/50 ML DISP.SYRIN IV ONE ×3 (10:30→17:15)
[2017-11-16] MEDS ORDERED: SODIUM POLYSTYRENE SULFONATE 15 GM/60 ML PO ONE (10:30)
[2017-11-16] MEDS ORDERED: INSULIN REG, HUMAN 100 UNIT/ML 3 ML VIAL (PYX) IV ONE (10:30)
[2017-11-16] MEDS ORDERED: INSULIN REG, HUMAN 100 UNIT/ML 3 ML VIAL (PYX) ONE (12:05)
--- NOTE | 2017-11-16 15:03 | PDOC PROGRESS REPORT ---
Subjective Progress Note for:: 11/16/17 Subjective:: Mr. 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 No acute event overnight. Patient says he feels better today. His abdominal pain is now well controlled. Patient awaits meeting with hospice team. Reason For Visit: ACUTE KIDNEY INJURY,HYPERBILIRUBENEMIA Physical Exam Vital Signs: Temp Pulse Resp BP Pulse Ox 97.3 F 72 16 95/67 L 100 11/16/17 11:39 11/16/17 11:39 11/16/17 11:39 11/16/17 11:39 11/16/17 11:39 Intake & Output 11/15/17 11/16/17 11/17/17 06:59 06:59 06:59 Intake Total 2272 4454 Output Total 400 Balance 2272 4054 Weight 181 lb 10.574 oz 184 lb 15.485 oz General appearance: PRESENT: no acute distress, thin Head exam: PRESENT: atraumatic, normocephalic Eye exam: PRESENT: scleral icterus Ear exam: PRESENT: normal external ear exam Mouth exam: PRESENT: moist, tongue midline Neck exam: ABSENT: carotid bruit, JVD, lymphadenopathy, thyromegaly Respiratory exam: PRESENT: clear to auscultation michelle. ABSENT: rales, rhonchi, wheezes Cardiovascular exam: PRESENT: RRR. ABSENT: diastolic murmur, rubs, systolic murmur Pulses: PRESENT: normal dorsalis pedis pul GI/Abdominal exam: PRESENT: ascites, distended, mass, organolmegaly - + hepatomegaly Rectal exam: PRESENT: deferred Neurological exam: PRESENT: alert, awake, oriented to person, oriented to place , oriented to time, oriented to situation Results Laboratory Results: 11/16/17 05:06 11/16/17 05:06 11/16/17 11/16/17 05:06 05:06 WBC 10.2 RBC 3.34 L Hgb 11.2 L Hct 32.6 L MCV 98 H MCH 33.5 H MCHC 34.2 RDW 23.7 H Plt Count 162 Seg Neutrophils % Not Reportable Lymphocytes % Not Reportable Monocytes % Not Reportable Eosinophils % Not Reportable Basophils % Not Reportable Absolute Neutrophils Not Reportable Absolute Lymphocytes Not Reportable Absolute Monocytes Not Reportable Absolute Eosinophils Not Reportable Absolute Basophils Not Reportable Sodium 135.9 L Potassium 5.4 H Chloride 112 H Carbon Dioxide 12 L Anion Gap 12 BUN 50 H Creatinine 1.58 H Est GFR ( Amer) 54 L Est GFR (Non-Af Amer) 44 L Glucose 80 Calcium 8.3 L Total Bilirubin 20.1 H AST 143 H ALT 87 H Alkaline Phosphatase 368 H Total Protein 7.0 Albumin 2.6 L Impressions: Chest X-Ray 11/14/17 00:00 IMPRESSION: No acute findings. Stable left upper lobe pulmonary nodules Abdomen/Pelvis CT 11/15/17 00:00 IMPRESSION: Lung base and liver metastases. Small to moderate amount of ascites in the peritoneal space, similar compared to 11/11/2017. Post splenectomy, left nephrectomy, and resection of a large retroperitoneal sarcoma. Assessment & Plan - Diagnosis (1) Acute kidney injury Is this a current diagnosis for this admission?: Yes Plan: Improving. BUN and Crea continue to trend down. Likely pre renal from dehydration from poor oral intake. Continue IV fluids at 120 cc/hr. Recheck BMP tomorrow. (2) Liver failure Is this a current diagnosis for this admission?: Yes Plan: CT of the abdomen shows almost complete replacement of the liver parenchyma with metastases. Liver enzymes have trended down from yesterday. Patient has had chronic hyperbilirubinemia deemed from hepatic metastases. Bilirubin and liver enzymes continue to be elevated. Mentation has improved today. Continue lactulose. (3) History of pulmonary embolism Is this a current diagnosis for this admission?: Yes Plan: Continue prophylactic dose of heparin for now. (4) Leiomyosarcoma Is this a current diagnosis for this admission?: Yes Plan: Patient was first diagnosed with a left quadrant abdominal mass in September 2015. He eventually underwent resection of the mass with left sided nephrectomy and partial colectomy with pre surgery radiation at [facility]. Patient awaits meeting with hospice team. (5) Transaminitis Is this a current diagnosis for this admission?: Yes Plan: Patient has chronic elevated liver enzymes deemed from hepatic metastases. Liver enzymes remain elevated. (6) Hyperkalemia Is this a current diagnosis for this admission?: Yes Plan: Potassium is elevated at 5.4. Will give kayexalate, Ca gluc, insulin and dextrose regimen. (7) Full code status Is this a current diagnosis for this admission?: Yes Plan: Patient and family are now amenable to considering hospice care. He remains full code at this time. - Time Time Spent with patient: 25-34 minutes
[2017-11-16] MEDS: TIMOLOL MALEATE 0.5% OPH SOLN 5 ML OU SCH ×2 (16:35→21:05)
[2017-11-16 17:47] LABS: ANION GAP 12 (5-19); BLOOD UREA NITROGEN 49 mg/dL (7-20); CALCIUM 8.5 mg/dL (8.4-10.2); CARBON DIOXIDE 14 mmol/L (22-30); CHLORIDE 111 mmol/L (98-107); GLUCOSE 90 mg/dL (75-110); POTASSIUM 4.8 mmol/L (3.6-5.0); SODIUM 137.1 mmol/L (137-145)
[2017-11-17] MEDS: NORMAL SALINE 1000 ML 1,000 ML IV PRN (03:44)
[2017-11-17] MEDS: HYDROMORPHONE HCL INJ/PF 2 MG/ML AMPULE IV PRN ×2 (06:51→11:11)
[2017-11-17] MEDS ORDERED: HYDROCODONE/ACETAMINOPHEN 7.5-325 MG TABLET PO PRN (09:50)
[2017-11-17] MEDS: LACTULOSE SYRUP 20 GM/30 ML UDCUP PO SCH ×2 (10:04→14:41)
[2017-11-17] MEDS: OXYCODONE HCL SR 10 MG TABLET PO SCH (10:04)
[2017-11-17] MEDS: TIMOLOL MALEATE 0.5% OPH SOLN 5 ML OU SCH (10:06)
[2017-11-17] MEDS: HEPARIN SOD (PORCINE) 5,000 UNIT/ML 1 ML SYRINGE SUBCUT SCH (10:08)
[2017-11-17] MEDS ORDERED: ONDANSETRON HCL INJ/PF 4 MG/2 ML SDV IV PRN (10:24)
[2017-11-17 15:46] VITALS: BP 85/59
--- NOTE | 2017-11-17 17:11 | PDOC DISCHARGE SUMMARY ---
General - Admit/Disc Date/PCP Admission Date/Primary Care Provider: 11/15/17 15:36 MALIK DURAND MD Discharge Date: 11/17/17 - Discharge Diagnosis (1) Acute kidney injury Is this a current diagnosis for this admission?: Yes (2) Liver failure Is this a current diagnosis for this admission?: Yes (3) History of pulmonary embolism Is this a current diagnosis for this admission?: Yes (4) Leiomyosarcoma Is this a current diagnosis for this admission?: Yes (5) Transaminitis Is this a current diagnosis for this admission?: Yes (6) Hyperkalemia Is this a current diagnosis for this admission?: Yes (7) Full code status Is this a current diagnosis for this admission?: Yes - Additional Information Resuscitation Status: Full Code Prescriptions: Hydrocodone/Acetaminophen [[place] 7.5-325 mg Tablet] 1 tab PO Q6HP PRN #20 tablet PRN Reason: Lactulose [Cephulac Syrup 20 gm/30 ml Udcup] 10 gm PO TID #2 udc Ondansetron HCl [Zofran 4 mg Tablet] 1 - 2 tab PO Q4H PRN #20 tablet PRN Reason: For Nausea/Vomiting Oxycodone HCl [Oxycontin Sr 10 mg Tablet] 10 mg PO Q12 #20 tab.sr.12h Home Medications: Polyethylene Glycol 3350 [Miralax Powder 17 gm/Packet] 17 gm PO BID 11/14/17 Timolol Maleate [Timoptic 0.5% Oph Soln 5 ml] 1 drop OU BID 11/14/17 Hydrocodone/Acetaminophen [[place] 7.5-325 mg Tablet] 1 tab PO Q6HP PRN #20 tablet 11/17/17 Lactulose [Cephulac Syrup 20 gm/30 ml Udcup] 10 gm PO TID #2 udc 11/17/17 Ondansetron HCl [Zofran 4 mg Tablet] 1 - 2 tab PO Q4H PRN #20 tablet 11/17/17 Oxycodone HCl [Oxycontin Sr 10 mg Tablet] 10 mg PO Q12 #20 tab.sr.12h 11/17/17 History of Present Illness History of Present Illness: EDUARDO SCHNEIDER is a 62 year old male with a PMH of 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 Durand's clinic due to dehydration. Patient apparently went to see Dr. Durand earlier today. He has been having chronic generalized abdominal pain which has worsened in the past 4 weeks. This is also associated with early satiety. He has been having poor oral intake for the past few weeks and was noted to be dehydrated when he was assessed at the oncology clinic. Patient is a direct admit from Dr. Durand's clinic. Discussed case with Dr. Durand over the phone. Patient has been found to have mets to the liver and lungs. Patient and family apparently are not amenable to hospice care. Upon encounter, patient does not appear to be in respiratory distress but is in distress from his abdominal pain. Hospital Course Hospital Course: Patient was started on IV fluids and was also given an IV bolus. His Creatinine did improve with fluids. Patient has had chronic hyperbilirubinemia deemed from hepatic metastases. Bilirubin and liver enzymes continue to be elevated. CT of the abdomen shows almost complete replacement of the liver parenchyma with metastases. He is not a candidate for any systemic treatment due to his liver failure. He has history of PE and was on Xarelto. But due to his liver failure and deranged PT and APTT, hematology recommended stopping Xarelto due to risk of bleeding. Patient's abdominal pain was controlled with oxycodone and prn dilaudi. He and family did agree to being on hospice care but he expressed he wants to remain a full code on discharge. Hospice team will continue to follow up with him at home. Physical Exam Vital Signs: Temp Pulse Resp BP Pulse Ox 97.8 F 99 12 85/59 L 90 L 11/17/17 12:27 11/17/17 15:40 11/17/17 15:40 11/17/17 15:40 11/17/17 15:40 Intake & Output 11/16/17 11/17/17 11/18/17 06:59 06:59 06:59 Intake Total 4454 3624 50 Output Total 400 150 Balance 4054 3624 -100 Weight 184 lb 15.485 oz 195 lb 1.745 oz General appearance: PRESENT: no acute distress, thin Eye exam: PRESENT: scleral icterus Ear exam: PRESENT: normal external ear exam Mouth exam: PRESENT: moist, tongue midline Neck exam: ABSENT: carotid bruit, JVD, lymphadenopathy, thyromegaly Respiratory exam: PRESENT: clear to auscultation michelle, rhonchi. ABSENT: rales, wheezes Cardiovascular exam: PRESENT: RRR. ABSENT: diastolic murmur, rubs, systolic murmur Pulses: PRESENT: normal dorsalis pedis pul GI/Abdominal exam: PRESENT: ascites, distended, organolmegaly Rectal exam: PRESENT: deferred Neurological exam: PRESENT: alert, awake, oriented to person, oriented to place , oriented to situation Results Laboratory Results: 11/16/17 05:06 11/16/17 17:25 11/16/17 17:25 Sodium 137.1 Potassium 4.8 Chloride 111 H Carbon Dioxide 14 L Anion Gap 12 BUN 49 H Creatinine 1.71 H Est GFR ( Amer) 49 L Est GFR (Non-Af Amer) 41 L Glucose 90 Calcium 8.5 Impressions: Chest X-Ray 11/14/17 00:00 IMPRESSION: No acute findings. Stable left upper lobe pulmonary nodules Abdomen/Pelvis CT 11/15/17 00:00 IMPRESSION: Lung base and liver metastases. Small to moderate amount of ascites in the peritoneal space, similar compared to 11/11/2017. Post splenectomy, left nephrectomy, and resection of a large retroperitoneal sarcoma. Qualifiers - * PATIENT BEING DISCHARGED WITH ANY OF THE FOLLOWING DIAGNOSIS: No
== END 2017-11-17 15:52 | disposition hospice, home (50) | DRG 683 ==
LOC: 3W 12:47 → INTOOBSV 12:47 → OBSVTOIN 11-15 15:36
PROVIDERS: ADMIT Internal Medicine; ATTEND Internal Medicine
DX: N17.9 Acute kidney failure, unspecified (principal); C78.7 Secondary malignant neoplasm of liver and intrahepatic bile duct; C48.8 Malignant neoplasm of overlapping sites of retroperitoneum and peritoneum; C78.00 Secondary malignant neoplasm of unspecified lung; E86.0 Dehydration; I10 Essential (primary) hypertension; R74.0 Nonspecific elevation of levels of transaminase and lactic acid dehydrogenase [LDH]; E87.5 Hyperkalemia; K72.90 Hepatic failure, unspecified without coma; Z23 Encounter for immunization; Z86.711 Personal history of pulmonary embolism; Z90.49 Acquired absence of other specified parts of digestive tract; Z90.5 Acquired absence of kidney; Z79.01 Long term (current) use of anticoagulants; Z92.3 Personal history of irradiation; Z87.891 Personal history of nicotine dependence
CPT/HCPCS: 36415; 71045; 74176; 80048; 80053; 81001; 85025; 85610; 85730; 90686; 93005; 93010; G0378; G0379; J0610; J1170; J1644; J1815; J2270; J2405; J3490; J7030